=== PATIENT | female | born 1960 | race Caucasian/White ===

== ENCOUNTER 2017-09-29 18:56 | Inpatient (IN) | payer BC ==
[~2017-09-29] VITALS: Ht 162.5 cm; Wt 49.5 kg
--- NOTE | ~2017-09-29 | PR ---
[place], [place] PROGRESS NOTE [id number] UN[facility] #: [id number] ROOM: 403 DOCTOR: BRIELLE LOWERY MD BIRTHDATE: [birth year] DOS: 10/01/2017 SUBJECTIVE: The patient was seen in the Cardiology Department just prior to her stress test. She has not had any further chest pain since admission. She is breathing more easily. PHYSICAL EXAMINATION: VITAL SIGNS: Her pulse is 85 and regular, blood pressure is 102/55. She is afebrile. She weighs 49.5 kilograms with a body mass index of 18.7. NECK: Supple. She has no jugular distention. Carotids are full. LUNGS: Respirations are unlabored. Her chest is clear. HEART: Had a regular rhythm with a soft S4 gallop. ABDOMEN: Benign. EXTREMITIES: Showed no edema. IMPRESSION: 1. Atypical chest pain, most likely due to coughing and chest wall injury. The patient shows no signs of myocardial injury. 2. Long-term and ongoing cigarette abuse. PLAN: We will proceed with an exercise myocardial stress perfusion study. Further recommendations depend upon how well she does on the stress test. I thank the hospitalist physicians for asking our advice regarding the patient's care. BRIELLE LOWERY MD CM:PNTRANS [id number] BRIELLE LOWERY MD 10/01/17 1537 interface
--- NOTE | ~2017-09-29 | CON ---
[place], [place] REPORT OF CONSULTATION NAME: WILFRED TRIPATHI UNIT #: [id number] ROOM: 403 DOCTOR: BRIELLE LOWERY MD BIRTHDATE: [birth year] DOS: 09/30/2017 CHIEF COMPLAINT: Chest pain. HISTORY OF PRESENT ILLNESS: The patient is a 57-year-old woman who has no previous history of coronary disease. She states that she has had a cough for 2 weeks. On the day before yesterday, she was coughing very hard. She was sitting still. After this, she developed a chest heaviness that lasted about 2 hours. It was not associated with diaphoresis, lightheadedness, dyspnea or nausea. She became concerned about the pain and therefore came to the Emergency Room. Chest x-ray showed no infiltrates and cardiac biomarkers have been normal. Her electrocardiogram showed no acute changes. We were asked to help determine the cause of her pains. PAST MEDICAL HISTORY: Includes: 1. Cigarette abuse. The patient has smoked one half pack a day for the last 35 years. 2. History of section. 3. History of fractured ankle, status post surgery. 4. History of distal radial fracture status post open reduction and internal fixation on the right. MEDICATIONS: Prior to admission, vitamin D 50,000 units weekly, omeprazole 20 mg daily and Ondansetron 4 mg q. 6 hours p.r.n. ALLERGIES: The patient lists an allergy to IVP DYE. REVIEW OF SYSTEMS: The patient denies diplopia or loss of vision. She denies lightheadedness or syncope. She denies focal weakness. She denies fevers, chills, sweats or recent weight change. She denies heat or cold intolerance and denies polydipsia or polyuria. She denies any recent change in exercise capacity. She has a cough, but denies hemoptysis or hematemesis. She denies any skin rashes. She denies change in bowel or bladder habits and denies blood in her stools or urine. She denies any peripheral edema. She has no claudications. Remainder of the review of systems is negative except as noted above. FAMILY HISTORY: Her father of a ruptured aortic aneurysm. Her mother of complications of heart failure. SOCIAL HISTORY: The patient is and lives with her . She smokes about a half pack a day. She does not consume significant amounts of alcohol. PHYSICAL EXAMINATION: GENERAL: Reveals a slender white female who is awake, alert and oriented. VITAL SIGNS: Pulse is 72 and regular, blood pressure is 117/50. She is afebrile. She weighs 49.5 kg and has a body mass index of 18.7. HEENT: Normocephalic and atraumatic. Extraocular muscles are intact. Sclerae are clear. Pupils are equal, round and react to light. Oral mucosa is moist. Tongue is midline. [place], [place] REPORT OF CONSULTATION NAME: WILFRED TRIPATHI UNIT #: [id number] ROOM: 403 DOCTOR: BRIELLE LOWERY MD BIRTHDATE: [birth year] NECK: Supple. She has no jugular distention. Carotids are full. I heard no bruits. She had no neck or supraclavicular masses. RESPIRATORY: Respirations are unlabored. Her chest is clear to auscultation and percussion. She has no presacral edema or chest wall tenderness. CARDIOVASCULAR: Her heart has a regular rhythm. She has no murmurs, rubs or gallops. The PMI is not displaced. There is no precordial heave, lift or thrill. I could not reproduce her chest pain by palpation of her anterior chest. ABDOMEN: Soft and normally active without masses, organomegaly or bruits. EXTREMITIES: Showed no edema. Peripheral pulses are palpable in the feet. LABORATORY DATA: I reviewed her electrocardiogram, which showed sinus rhythm. She does have prominent inferior P waves consistent with right atrial enlargement, but the tracing is otherwise normal. Hemoglobin is 13.5, white count 4100, platelet count 214,000. Sodium 144, potassium 4.3, BUN 9, creatinine 0.78. Serial troponin levels have been normal. IMPRESSION: 1. Atypical chest pain. Thus far, the patient shows no objective evidence for myocardial infarction or myocardial injury. 2. Cigarette abuse, penitentiary and ongoing. PLAN: The patient was strongly encouraged not to smoke. We will plan on doing an exercise myocardial perfusion study within the next 24 hours. If that looks normal, then no other workup would be indicated. We will make further recommendations after we seen the results of her stress test. I thank the hospitalist physicians for asking our advice regarding her care. BRIELLE LOWERY MD CM:CONSTR:REPORT OF CONSULTATION 46 09/30/17 2101 interface
[~2017-09-29 18:56] MED LIST: ATIVAN1 MG PO; HYDROCODONE BIT1 T11 PO; MOTRIN800 MG PO; NKHM PO; PERCOCET 325 MG1 TA2 PO; PRILOSEC20 M1 PO; PRILOSEC20 MG PO; Percocet 325 MG1 TAB PO; ULTRAM50 MG PO; VITAMIN D350000 UNIT PO; ZOFRAN4 MG PO; Zofran4 MG PO
[2017-09-29 19:03] VITALS: BP 118/66
[2017-09-29 19:23] LABS: BASO # 0.1 10*3/uL (0.0-0.1); BASO % 1.1 % (0.0-1.0); EOS # 0.2 10*3/uL (0.0-0.4); EOS % 3.8 % (1.0-4.0); HEMATOCRIT 40.1 % (37.0-47.0); HEMOGLOBIN 13.7 g/dl (12.0-16.0); LYMPH # 1.9 10*3/uL (1.3-4.4); LYMPH % 39.7 % (27.0-41.0); MEAN CELL VOLUME 92.8 fl (81.0-99.0); MEAN CORPUSCULAR HGB 31.7 pg (27.0-31.0); MEAN CORPUSCULAR HGB CONC 34.2 g/dl (33.0-37.0); MONO # 0.8 10*3/uL (0.1-1.0); NEUT # 1.8 10*3/uL (2.3-7.9); NEUT % 38.2 % (47.0-73.0); PLATELET COUNT AUTOMATED 220 10*3/uL (130-400); RED BLOOD COUNT 4.32 10*6/uL (4.10-5.10); RED CELL DISTRI WIDTH 12.7 % (0-14.5); WHITE BLOOD COUNT 4.8 10*3/uL (4.8-10.8)
[2017-09-29 19:30] VITALS: BP 106/53
[2017-09-29 19:42] LABS: ALBUMIN 3.5 gm/dl (3.1-4.5); BUN 9 mg/dl (7-24); CHLORIDE 108 mmol/L (98-107); CREATININE 0.84 mg/dL (0.55-1.02); POTASSIUM 3.4 mmol/L (3.5-5.1); SGOT/AST 30 IU/L (3-35); SGPT/ALT 34 U/L (12-78); SODIUM 141 mmol/L (136-145); TOTAL PROTEIN 7.1 gm/dL (6.4-8.2)
[2017-09-29 19:45] LABS: ALKALINE PHOSPHATASE 123 U/L (45-117); TROPONIN I < 0.015 ng/ml (<0.045)
[2017-09-29 20:05] VITALS: BP 123/68
[2017-09-29 20:42] VITALS: BP 113/66
[2017-09-29 21:00] VITALS: BP 124/64
[2017-09-30 00:13] VITALS: BP 112/67
[2017-09-30 07:24] LABS: HEMATOCRIT 39.6 % (37.0-47.0); HEMOGLOBIN 13.5 g/dl (12.0-16.0); MEAN CELL VOLUME 93.4 fl (81.0-99.0); MEAN CORPUSCULAR HGB 31.8 pg (27.0-31.0); MEAN CORPUSCULAR HGB CONC 34.1 g/dl (33.0-37.0); MEAN PLATELET VOLUME 10.5 fl (9.6-12.3); PLATELET COUNT AUTOMATED 214 10*3/uL (130-400); RED BLOOD COUNT 4.24 10*6/uL (4.10-5.10); RED CELL DISTRI WIDTH 13.1 % (0-14.5); WHITE BLOOD COUNT 4.1 10*3/uL (4.8-10.8)
[2017-09-30 07:51] LABS: ALBUMIN 3.1 gm/dl (3.1-4.5); BUN 9 mg/dl (7-24); CHLORIDE 110 mmol/L (98-107); POTASSIUM 4.3 mmol/L (3.5-5.1); SODIUM 144 mmol/L (136-145)
[2017-09-30 08:00] VITALS: BP 114/58
[2017-09-30 08:04] LABS: ALKALINE PHOSPHATASE 111 U/L (45-117); CHOLESTEROL 133 mg/dL (<200); CREATININE 0.78 mg/dL (0.55-1.02); HDL CHOLESTEROL 39 mg/dl (40-60); LDL CHOLESTEROL 80 mg/dL (9-159); SGOT/AST 24 IU/L (3-35); SGPT/ALT 30 U/L (12-78); THYROID STIM HORMONE (HS) 0.981 uIU/ml (0.358-4.75); TOTAL PROTEIN 6.7 gm/dL (6.4-8.2); TRIGLYCERIDES 68 mg/dl (<150); VLDL CHOLESTEROL 14 mg/dL (6-40)
[2017-09-30 08:22] LABS: ATYPICAL LYMPHS 1 % (0-0); BASOPHILS 2 % (0-1); PLATELET SUFFICIENCY NORMAL (NORMAL); TOTAL CELLS COUNTED 100 #CELLS
[2017-09-30 12:00] VITALS: BP 118/62
[2017-09-30 16:00] VITALS: BP 117/50
[2017-09-30 20:00] VITALS: BP 102/57
[2017-10-01] VITALS: BP 104/70
[2017-10-01 08:00] VITALS: BP 102/55
[2017-10-01 12:00] VITALS: BP 102/55
[2017-10-01 16:00] VITALS: BP 108/59
== END 2017-10-01 16:14 | disposition home or self-care (01) | DRG 313 ==
LOC: ED 18:56 → EDHOLD 20:14 → 4E 20:14
PROVIDERS: Emergency Medicine Emergency Medical Services; Family Medicine Adult Medicine
PROC: 4A02XM4 Measurement of Cardiac Total Activity, External Approach (ICD-10-PCS; principal; 2017-10-01)
PROC: 3E033HZ Introduction of Radioactive Substance into Peripheral Vein, Percutaneous Approach (ICD-10-PCS; principal; 2017-10-01)
DX: R07.89 Other chest pain (principal); E83.41 Hypermagnesemia; E87.6 Hypokalemia; K21.9 Gastro-esophageal reflux disease without esophagitis; F17.210 Nicotine dependence, cigarettes, uncomplicated; F41.9 Anxiety disorder, unspecified; Z82.49 Family history of ischemic heart disease and other diseases of the circulatory system; Z91.041 Radiographic dye allergy status; Z79.899 Other long term (current) drug therapy; Z71.6 Tobacco abuse counseling

== ENCOUNTER 2017-10-09 14:43 | Emergency (ER) | payer BC ==
[~2017-10-09] VITALS: Ht 162.5 cm; Wt 49.9 kg
[2017-10-09 14:47] VITALS: BP 134/86
== END 2017-10-09 16:34 | disposition home or self-care (01) ==
LOC: ED 14:43
DX: S61.211A Laceration without foreign body of left index finger without damage to nail, initial encounter (principal); F17.200 Nicotine dependence, unspecified, uncomplicated; Z91.041 Radiographic dye allergy status; Z79.899 Other long term (current) drug therapy; W22.8XXA Striking against or struck by other objects, initial encounter; Y93.89 Activity, other specified; Y92.89 Other specified places as the place of occurrence of the external cause; Y99.8 Other external cause status

== ENCOUNTER → 2018-03-11 | Outpatient (CLI) | payer BC ==
[~2018-03-11] MED LIST changes: +ANTIBIOTIC28.4 GM T; +AUGMENTIN 875875 MG PO
[2018-03-11 17:02] LABS: BUN 11 mg/dl (7-24); CREATININE 0.88 mg/dL (0.55-1.02)
== END | disposition home or self-care (01) ==
LOC: LAB 15:49
PROVIDERS: Internal Medicine
DX: R14.0 Abdominal distension (gaseous) (principal); R93.5 Abnormal findings on diagnostic imaging of other abdominal regions, including retroperitoneum

== ENCOUNTER → 2018-09-23 | Outpatient (CLI) | payer BC | END | disposition home or self-care (01) | LOC: MAMMO 03:11 | DX: Z12.31 Encounter for screening mammogram for malignant neoplasm of breast (principal) ==

== ENCOUNTER 2019-08-25 17:40 | Emergency (ER) | payer BC ==
[~2019-08-25] VITALS: Ht 162.5 cm; Wt 48.1 kg
[2019-08-25 17:40] VITALS: BP 117/69
[2019-08-25 18:08] LABS: BASO % 0.6 % (0.0-1.0); EOS # 0.1 10*3/uL (0.0-0.4); EOS % 2.4 % (1.0-4.0); HEMATOCRIT 41.8 % (37.0-47.0); HEMOGLOBIN 14.3 g/dl (12.0-16.0); LYMPH # 2.1 10*3/uL (1.3-4.4); LYMPH % 44.5 % (27.0-41.0); MEAN CELL VOLUME 93.5 fl (81.0-99.0); MEAN CORPUSCULAR HGB CONC 34.2 g/dl (33.0-37.0); MEAN PLATELET VOLUME 11.2 fl (9.6-12.3); MONO # 0.6 10*3/uL (0.1-1.0); MONO % 12.6 % (3.0-9.0); NEUT # 1.9 10*3/uL (2.3-7.9); NEUT % 39.7 % (47.0-73.0); PLATELET COUNT AUTOMATED 165 10*3/uL (130-400); RED BLOOD COUNT 4.47 10*6/uL (4.10-5.10); RED CELL DISTRI WIDTH 12.6 % (0-14.5); WHITE BLOOD COUNT 4.7 10*3/uL (4.8-10.8)
[2019-08-25 18:26] LABS: ALBUMIN 3.6 gm/dl (3.1-4.5); ALKALINE PHOSPHATASE 111 U/L (45-117); BUN 12 mg/dl (7-24); CHLORIDE 107 mmol/L (98-107); CREATININE 0.92 mg/dL (0.55-1.02); POTASSIUM 3.6 mmol/L (3.5-5.1); SGOT/AST 26 IU/L (3-35); SGPT/ALT 36 U/L (12-78); SODIUM 139 mmol/L (136-145); TOTAL PROTEIN 7.3 gm/dL (6.4-8.2)
[2019-08-25] MEDS ORDERED: PREDNISONE20 M1 PO (19:14)
[2019-08-25] MEDS ORDERED: ROBITUSSIN DM 101 OZ PO (19:14)
[2019-08-25] MEDS ORDERED: PROVENTIL HFA6.7 GM INH (19:14)
[2019-08-25] MEDS ORDERED: ZITHROMAX500 MG PO (19:14)
== END 2019-08-25 19:24 | disposition home or self-care (01) ==
LOC: ED 17:40
PROVIDERS: Nurse Practitioner Family
DX: J20.9 Acute bronchitis, unspecified (principal); F17.200 Nicotine dependence, unspecified, uncomplicated; Z91.041 Radiographic dye allergy status; Z79.2 Long term (current) use of antibiotics; Z79.899 Other long term (current) drug therapy

== ENCOUNTER → 2020-10-22 | Outpatient (CLI) | payer BC ==
[~2020-10-22] MED LIST changes: +PREDNISONE20 M1 PO; +PROVENTIL HFA6.7 GM INH; +ROBITUSSIN DM 101 OZ PO; +ZITHROMAX500 MG PO
== END | disposition home or self-care (01) ==
LOC: MAMMO 07:56 → CT 09:00
PROVIDERS: ATTEND Nurse Practitioner Primary Care
DX: Z12.31 Encounter for screening mammogram for malignant neoplasm of breast (principal); R91.1 Solitary pulmonary nodule; N64.89 Other specified disorders of breast

== ENCOUNTER → 2022-04-14 | Outpatient (CLI) | payer BC | END | disposition home or self-care (01) | LOC: MAMMO 10:30 | PROVIDERS: ATTEND Physician Assistant | DX: Z12.31 Encounter for screening mammogram for malignant neoplasm of breast (principal); R92.1 Mammographic calcification found on diagnostic imaging of breast ==

== ENCOUNTER → 2023-05-07 | Outpatient (CLI) | payer BC | END | disposition home or self-care (01) | LOC: MAMMO 07:52 | PROVIDERS: ATTEND Physician Assistant | DX: Z12.31 Encounter for screening mammogram for malignant neoplasm of breast (principal) ==

== ENCOUNTER → 2023-05-15 | Outpatient (CLI) | payer BC | END | disposition home or self-care (01) | LOC: RAD 00:56 | PROVIDERS: ATTEND Physician Assistant | DX: J43.9 Emphysema, unspecified (principal); F17.210 Nicotine dependence, cigarettes, uncomplicated; M81.0 Age-related osteoporosis without current pathological fracture; Z78.0 Asymptomatic menopausal state ==

== ENCOUNTER 2023-05-23 13:42 | Emergency (ER) | payer BC, MEDICARE ==
[~2023-05-23] VITALS: Ht 162.5 cm; Wt 50.8 kg
[2023-05-23 14:05] VITALS: BP 135/75
[2023-05-23] MEDS ORDERED: CYCLOBENZAPRINE5 M3 PO (16:13)
[2023-05-23] MEDS ORDERED: MELOXICAM5 MG PO (16:13)
== END 2023-05-23 16:16 | disposition home or self-care (01) ==
LOC: ED 13:42
DX: M54.31 Sciatica, right side (principal); F17.200 Nicotine dependence, unspecified, uncomplicated; Z91.041 Radiographic dye allergy status; Z79.2 Long term (current) use of antibiotics; Z79.899 Other long term (current) drug therapy; Z98.890 Other specified postprocedural states

== ENCOUNTER → 2023-12-17 | Outpatient (CLI) | payer BC ==
[~2023-12-17] MED LIST changes: +CYCLOBENZAPRINE5 M3 PO; +MELOXICAM5 MG PO
== END | disposition home or self-care (01) ==
LOC: RAD 14:20
PROVIDERS: ATTEND Internal Medicine
DX: J43.9 Emphysema, unspecified (principal)

== ENCOUNTER → 2024-01-19 | Outpatient (CLI) | payer BC ==
[~2024-01-19] MED LIST changes: +Albuterol Sulfate 2.5 MG/3 ML VIAL NEB ONE
== END | disposition home or self-care (01) ==
LOC: CP 12-29 08:30
PROVIDERS: ATTEND Internal Medicine
DX: J43.9 Emphysema, unspecified (principal)

== ENCOUNTER 2024-12-11 17:18 | Emergency (ER) | payer BC ==
[~2024-12-11] VITALS: Ht 162.5 cm; Wt 50.8 kg
[~2024-12-11 17:18] MED LIST changes: -Albuterol Sulfate 2.5 MG/3 ML VIAL NEB ONE
[2024-12-11 17:29] VITALS: BP 118/66
[2024-12-11] MEDS ORDERED: LISSAMINE GREEN 1.5 MG STRIP OP ONE (17:50)
[2024-12-11] MEDS ORDERED: Tetracaine Hydrochloride 0.5% 4 ML BOT OPH ONE (17:50)
[2024-12-11] MEDS ORDERED: methylPREDNISolone sod succ 125 MG VIAL IM ONE (17:50)
[2024-12-11] MEDS ORDERED: diphenhydrAMINE hydrochloride 25 MG CAP PO ONE (17:50)
[2024-12-11] MEDS ORDERED: MEDROL DOSEPAK4 MG PO (18:17)
== END 2024-12-11 18:35 | disposition home or self-care (01) ==
LOC: ED 17:18
DX: S86.912A Strain of unspecified muscle(s) and tendon(s) at lower leg level, left leg, initial encounter (principal); H57.89 Other specified disorders of eye and adnexa; F17.200 Nicotine dependence, unspecified, uncomplicated; Z91.041 Radiographic dye allergy status; Z79.899 Other long term (current) drug therapy; Z98.890 Other specified postprocedural states; X50.0XXA Overexertion from strenuous movement or load, initial encounter; Y93.89 Activity, other specified; Y92.89 Other specified places as the place of occurrence of the external cause; Y99.8 Other external cause status

== ENCOUNTER → 2025-05-22 | Outpatient (CLI) | payer BC ==
[~2025-05-22] MED LIST changes: +MEDROL DOSEPAK4 MG PO
== END | disposition home or self-care (01) ==
LOC: MAMMO 01:44
PROVIDERS: ATTEND Physician Assistant
DX: Z12.31 Encounter for screening mammogram for malignant neoplasm of breast (principal)

== ENCOUNTER → 2025-05-23 | Outpatient (CLI) | payer BC | END | disposition home or self-care (01) | LOC: CT 02:31 | PROVIDERS: ATTEND Physician Assistant | DX: Z12.2 Encounter for screening for malignant neoplasm of respiratory organs (principal); J43.9 Emphysema, unspecified; R91.8 Other nonspecific abnormal finding of lung field; J98.11 Atelectasis; I70.0 Atherosclerosis of aorta; F17.210 Nicotine dependence, cigarettes, uncomplicated ==